=== PATIENT | male | born 1935 | race African-American/Black ===

== ENCOUNTER 2022-08-04 19:43 | Inpatient (IN) | payer MEDICARE ==
[~2022-08-04] VITALS: Ht 170.2 cm; Wt 82.0 kg
[~2022-08-04 19:43] MED LIST: BREZTRI AEROS10.7 GM IH; CARDIZEM 60MG T60 MG PO; CEPHALEXIN500 M1 PO; FLOMAX 0.40.4 MG/CAP PO; IMDUR 30MG30 MG/TAB PO; LASIX 20MG TABL20 MG PO; LIPITOR 40MG TA40 MG PO; LOPRESSOR 225 MG/TAB PO; NATURAL ODORLE400 MG PO; NITROSTAT0.4 MG/TAB SL; ORIGANUM OIL 1 M1 ML PO; PREDNISONE10 MG PO; PROAIR HFA0.09 MG/AC IH; PROSCAR 5MG5 MG PO; RESTORIL 1515 MG/CAP PO; TYLENOL #4 (1 UDTAB PO; XARELTO20 MG PO; ZESTRIL2.5 MG PO
[2022-08-04 20:10] LABS: MEAN CELL VOLUME 94 fl (80.0-100.0); MEAN CORPUSCULAR HEMOGLOBIN 31 pg (27-31); MEAN CORPUSCULAR HGB CONC 33 g/dl (33.0-37.0); MEAN PLATELET VOLUME 11.2 fl (7.4-10.4); PLATELET COUNT 161 K/mm3 (130-400); RED BLOOD COUNT 3.27 M/mm3 (4.20-5.60); REDCELL DISTRIBUTION WIDTH-CV 17.6 % (11.5-14.5)
[2022-08-04 20:11] LABS: HEMATOCRIT 30.7 % (42.0-52.0)
[2022-08-04 20:57] LABS: ANISOCYTOSIS 1+; BAND 4 % (0-10); HYPOCHROMIA 1+; LYMPHOCYTE 27 % (20.0-51.0); METAMYELOCYTE 1 % (0-0); NEUTROPHILS 64 % (42.0-75.2); PLATELET ESTIMATE NORMAL (NORMAL)
[2022-08-04 20:58] LABS: OVALOCYTES 1+
[2022-08-04 21:23] LABS: ALBUMIN 3.2 gm/dL (3.4-4.8); BILIRUBIN,TOTAL 0.9 mg/dL (0.2-1.2); CALCIUM 8.5 mg/dL (8.4-10.2); CREATININE, serum 1.1 mg/dL (0.72-1.25); POTASSIUM 3.6 mmol/L (3.5-4.5); TOTAL PROTEIN 6.7 gm/dL (6.2-8.1)
[2022-08-04 21:30] LABS: TROPONIN-I 0.05 ng/mL (0.00-0.033)
[2022-08-04] MEDS ORDERED: ATARAX 10MG10 MG/TAB PO (22:48)
[2022-08-04] MEDS ORDERED: PROTONIX 40MG T40 MG PO (22:49)
[2022-08-04] MEDS ORDERED: PRINIVIL2.5 MG PO (22:50)
[2022-08-04] MEDS ORDERED: ASPIRIN 81M81 MG/TA2 PO (22:52)
[2022-08-04 23:31] VITALS: BP 121/61; PULSE 93; TEMP 98.9
--- NOTE | 2022-08-04 23:32 | NUR ---
2320 PT ARRIVED TO ROOM 358.
[2022-08-05] VITALS (17 sets, daily range): BP systolic 95–158; BP diastolic 39–78; PULSE 60–92; TEMP 97.4–98.3
--- NOTE | 2022-08-05 00:51 | NUR ---
0048 LAB REPORTED CRITICAL LAB VALUE TO THIS RN, TROP [phone] CRITICAL CALLED TO FUNDRAISING COORDINATOR
[2022-08-05 03:49] LABS: HEMOGLOBIN 10.2 g/dl (13.5-18.0); MEAN CELL VOLUME 94 fl (80.0-100.0); MEAN CORPUSCULAR HEMOGLOBIN 30 pg (27-31); MEAN CORPUSCULAR HGB CONC 32 g/dl (33.0-37.0); MEAN PLATELET VOLUME 11.1 fl (7.4-10.4); PLATELET COUNT 159 K/mm3 (130-400); REDCELL DISTRIBUTION WIDTH-CV 17.4 % (11.5-14.5)
[2022-08-05 04:10] LABS: CALCIUM 8.4 mg/dL (8.4-10.2); CREATININE, serum 0.98 mg/dL (0.72-1.25); MAGNESIUM 1.8 mg/dL (1.6-2.6); POTASSIUM 3.3 mmol/L (3.5-4.5)
[2022-08-05 04:20] LABS: BAND 1 % (0-10); EOSINOPHIL 1 % (0-4); LYMPHOCYTE 25 % (20.0-51.0); NEUTROPHILS 71 % (42.0-75.2)
[2022-08-05 04:21] LABS: ANISOCYTOSIS 1+; HYPOCHROMIA 2+; PLATELET ESTIMATE NORMAL (NORMAL)
--- NOTE | 2022-08-05 06:06 | NUR ---
604 CONSULT TO CARDIOLOGY CALLED TO MD JEROME
--- NOTE | 2022-08-05 09:26 | NUR ---
PATIENT C/O SEVERE CHEST PAIN TO THE LEFT SIDE. NOTIFIED HOSPITALIST. EKG ORDERED. WILL CONTINUE TO MONITOR.
--- NOTE | 2022-08-05 11:02 | NUR ---
Initial visit; Patient thnaked Kids Club Attendant for looking in on him and seeing how things are going. Patient states he is doing better and asks that Kids Club Attendant keep him in her prayers. Kids Club Attendant will follow up and offered God's blessings.
--- NOTE | 2022-08-05 15:30 | NUR ---
Attempt made to contact the patients daughter Nessa for intake and was unsuccessful. Message left.
--- NOTE | 2022-08-05 17:15 | NUR ---
PATIENT IS PLEASANT. HAD A LEXISCAN TODAY. EF IS 55%, VSS. PATIENT IS HAVING LOOSE STOOLS AFTER SCAN, SBA WITH WALKER TO THE RESTROOM. MD STATES PATIENT MAY BE ABLE TO GO HOME TOMORROW. BED ALARM ON.
[2022-08-06] VITALS (15 sets, daily range): BP systolic 89–143; BP diastolic 38–64; PULSE 50–71; TEMP 97.3–98.3
[2022-08-06 06:41] LABS: HEMOGLOBIN 10.8 g/dl (13.5-18.0); MEAN CELL VOLUME 94 fl (80.0-100.0); MEAN CORPUSCULAR HEMOGLOBIN 30 pg (27-31); MEAN CORPUSCULAR HGB CONC 32 g/dl (33.0-37.0); MEAN PLATELET VOLUME 11.7 fl (7.4-10.4); PLATELET COUNT 168 K/mm3 (130-400); RED BLOOD COUNT 3.58 M/mm3 (4.20-5.60); REDCELL DISTRIBUTION WIDTH-CV 17.4 % (11.5-14.5)
[2022-08-06 06:47] LABS: HEMATOCRIT 33.6 % (42.0-52.0)
[2022-08-06 07:03] LABS: CALCIUM 8.3 mg/dL (8.4-10.2); CREATININE, serum 0.91 mg/dL (0.72-1.25); POTASSIUM 3.8 mmol/L (3.5-4.5)
[2022-08-06 07:06] LABS: ANISOCYTOSIS 1+; EOSINOPHIL 4 % (0-4); LYMPHOCYTE 19 % (20.0-51.0); METAMYELOCYTE 3 % (0-0); NEUTROPHILS 65 % (42.0-75.2); OVALOCYTES 1+; SCHISTOCYTES 1+
[2022-08-06 07:07] LABS: PLATELET ESTIMATE NORMAL (NORMAL)
--- NOTE | 2022-08-06 08:52 | NUR ---
Assessment complete. A/O x4. INT TO LAC without s/s complications. Tele reading SR BBB PACS. Reports headache and sharp pain to left chest- stating that the pain has been going on for at least 45 minutes. Unable to rate but pt grimacing and moaning. EKG just completed by Cardiopulmonary. Will notifiy the hospitalist.
--- NOTE | 2022-08-06 09:03 | NUR ---
Tylenol administered po for headache with assessment. Nitrostat 0.4mg adminstered SL for c/o chest pain. VSS- see flowsheet. Ekta Mancilla notified of pt c/o chest pain.
--- NOTE | 2022-08-06 09:09 | NUR ---
Dr. Holguin at bedside examing patient. Pt reports pain is "easy up a little bit." 0.4mg Nitrostat administered SL. EKG ordered. Cariopulmonary notified. VSS- see flowsheet.
--- NOTE | 2022-08-06 09:15 | NUR ---
Pt states "it is a little better." VSS- see flowsheet.
--- NOTE | 2022-08-06 09:17 | NUR ---
Cardiopulmonary at bedside completing EKG.
--- NOTE | 2022-08-06 09:20 | NUR ---
Pt continue to report "slight" improvement. EKG completed. VSS- see flowsheet.
--- NOTE | 2022-08-06 10:45 | NUR ---
Follow-up visit; Patient says he wants First Officer And Flight Instructor to visit whenever she can and says he hopes he is doing better and along with First Officer And Flight Instructor he prays sll the time to feel better. First Officer And Flight Instructor wished Rigoberto a good day and continued healing.
--- NOTE | 2022-08-06 10:51 | NUR ---
Pt reports chest pain improved, rating 1-2/10 with sneezing only. Has worked with therapy this morning and is now sitting up in chair with chair alarm on.
--- NOTE | 2022-08-06 11:34 | NUR ---
SW contacted the patient's daughter, Nessa (ph#[phone]), to discuss discharge plan. The patient lives [place] [address] with Nessa, Nessa's , and the patient's other daughter (Aviva, ph#[phone]). Nessa states that the patient needs assistance with ADLs and has a cane, walker, and showerchair. Nessa states that her and her sister assist the patient with his ADLs. The patient's PCP is Dr. Leatha Nix at [facility] in [place] and he receives his medications from [facility] in . The patient's DPOA-HC is in EMR and it designates Nessa. Nessa states that the plan is for the patient to return back home with her and family upon discharge. No additional needs at this time. *Discharge plan: home with family*
--- NOTE | 2022-08-06 13:07 | NUR ---
Pt resting in bed. Reports "unbearable" headache. Reports chest pain 07/28. Reports stomach "irritated." Very difficult to understand patient needs as he goes from crying out to Sonu to complaining of stomach pain to headache to chest pain. VSS- see flowsheet.
--- NOTE | 2022-08-06 13:30 | NUR ---
Upon entering room, patient visably upset. Provided reassurance and explained that the provider has been notified and that he would be getting a CT scan of his head. Pt verbalizes understanding.
--- NOTE | 2022-08-06 13:36 | NUR ---
Pt calls this nurse to room to report LLE/posterior knee pain. VSS-see flowsheet. FABIAN Sargent notified by MARY ALICE Varner and requested her to come to bedside to evaluate pt.
--- NOTE | 2022-08-06 13:41 | NUR ---
Ekta at bedside. Contacted CT and they report that they will be up within the hour to get the patient.
--- NOTE | 2022-08-06 14:45 | NUR ---
Pt off unit for CT scan. Pt has been much calmer since Ekta came to bedside and visited with him.
--- NOTE | 2022-08-06 15:01 | NUR ---
Pt reports headache and chest pain/discomfort have improved- rating both 1/10 on pain scale. Reports stomach pain also improved- rating pain 2/10. Speech Therapy at bedside for consultation.
--- NOTE | 2022-08-06 15:53 | NUR ---
Dr. Holguin notified that patient's CT scan is resulted.
--- NOTE | 2022-08-06 17:28 | NUR ---
This nurse notified Dr. Baugh of consulation.
--- NOTE | 2022-08-06 18:36 | NUR ---
Pt sat up in chair for supper- approximately 1 hour. Rates headache and chest discomfort 1/10. Rates pain to abdomen 2/10. Reports overall feeling better as the evening has progressed. Now resting in bed without complaints.
[2022-08-07] VITALS (9 sets, daily range): BP systolic 101–116; BP diastolic 45–92; PULSE 60–71; TEMP 97.4–98.4
[2022-08-07 06:14] LABS: HEMOGLOBIN 10.6 g/dl (13.5-18.0); MEAN CELL VOLUME 95 fl (80.0-100.0); MEAN CORPUSCULAR HEMOGLOBIN 30 pg (27-31); MEAN CORPUSCULAR HGB CONC 32 g/dl (33.0-37.0); MEAN PLATELET VOLUME 11.6 fl (7.4-10.4); PLATELET COUNT 160 K/mm3 (130-400); REDCELL DISTRIBUTION WIDTH-CV 17.2 % (11.5-14.5)
[2022-08-07 06:15] LABS: HEMATOCRIT 33.2 % (42.0-52.0)
[2022-08-07 06:30] LABS: CALCIUM 8.1 mg/dL (8.4-10.2); CREATININE, serum 0.9 mg/dL (0.72-1.25); POTASSIUM 3.7 mmol/L (3.5-4.5)
[2022-08-07 07:20] LABS: EOSINOPHIL 3 % (0-4); LYMPHOCYTE 19 % (20.0-51.0); METAMYELOCYTE 1 % (0-0); NEUTROPHILS 72 % (42.0-75.2)
[2022-08-07 07:21] LABS: PLATELET ESTIMATE NORMAL (NORMAL)
[2022-08-07 07:22] LABS: ANISOCYTOSIS 1+
--- NOTE | 2022-08-07 09:27 | NUR ---
Follow-up visit; Patient thanked Casing Runner for coming in and wishing him well and leaving a card with a prayer for him. Casing Runner will continue to keep Rigoberto in her prayers.
[2022-08-07] MEDS ORDERED: MULTAQ400 MG PO (10:40)
--- NOTE | 2022-08-07 14:35 | NUR ---
The patient is to discharge back home with his family today, 08/07. MAILE contacted the patient's daughter, Nessa, to follow up. Nessa had no concerns for SW. She confirms that the patient has oxygen at night. She states that she will steel pickler the patient around 1730 today. MAILE notified the RN of this. MAILE read the IM form outloud to Nessa over the phone. Nessa verbalized understanding and agreement to discharge today. She gave SW approval to sign the form on her behalf. No additional needs at this time.
--- NOTE | 2022-08-07 17:00 | NUR ---
PATIENT GIVEN DISCHARGE INSTRUCTIONS AND EDUCATION. ALL NEW AND STOPPED MEDICATIONS REVIEWED WITH PATIENT. PATIENT MADE AWARE OF FOLLOW UP APTS. ALL QUESTIONS ANSWERED. PATIENTS CALL LIGHT WITH IN REACH. WAITING FOR FAMILY TO PICK HIM UP.
--- NOTE | 2022-08-07 18:38 | NUR ---
PATIENT DRESSED AND TAKEN TO ER ENTRANCE VIA WHEELCHAIR. STEPAN LEFT IN STABLE CONDITION IN THE CARE OF HIS DAUGHTER. COPY OF CERTIFICATE IN PATIENT CHART.
[2022-08-08] MEDS ORDERED: TYLENOL 325MG325 MG PO (12:28)
== END 2022-08-07 18:38 | disposition home or self-care (01) | DRG 377 ==
LOC: COL.ER → EDBD 19:43 → COL.ER 19:43 → MEDICAL 22:35 → COL.ER 22:35 → MEDICAL 22:35 → EDBD 08-07 18:38 → MEDICAL 08-07 18:38
PROVIDERS: Personal Emergency Response Attendant; Physician Assistant; Student in an Organized Health Care Education/Training Program; ADMIT Student in an Organized Health Care Education/Training Program
DX: K92.2 Gastrointestinal hemorrhage, unspecified (principal); I21.A1 Myocardial infarction type 2; D62 Acute posthemorrhagic anemia; I48.20 Chronic atrial fibrillation, unspecified; I50.32 Chronic diastolic (congestive) heart failure; K62.5 Hemorrhage of anus and rectum; I11.0 Hypertensive heart disease with heart failure; I20.9 Angina pectoris, unspecified; I08.1 Rheumatic disorders of both mitral and tricuspid valves; I49.1 Atrial premature depolarization; I37.1 Nonrheumatic pulmonary valve insufficiency; I45.10 Unspecified right bundle-branch block; D64.9 Anemia, unspecified; D69.6 Thrombocytopenia, unspecified; J44.9 Chronic obstructive pulmonary disease, unspecified; R13.10 Dysphagia, unspecified; N40.0 Benign prostatic hyperplasia without lower urinary tract symptoms; E78.5 Hyperlipidemia, unspecified; G47.00 Insomnia, unspecified; R53.81 Other malaise; Z79.82 Long term (current) use of aspirin; Z79.01 Long term (current) use of anticoagulants; Z95.818 Presence of other cardiac implants and grafts; Z86.73 Personal history of transient ischemic attack (TIA), and cerebral infarction without residual deficits
CPT/HCPCS: OP; A9500; A9575; G0378

== ENCOUNTER 2022-08-08 09:49 | Inpatient (IN) | payer MEDICARE ==
[~2022-08-08] VITALS: Ht 170.2 cm; Wt 86.0 kg
[~2022-08-08 09:49] MED LIST changes: +ASPIRIN 81M81 MG/TA2 PO; +ATARAX 10MG10 MG/TAB PO; +MULTAQ400 MG PO; +PRINIVIL2.5 MG PO; +PROTONIX 40MG T40 MG PO
[2022-08-08 10:09] LABS: HEMOGLOBIN 11.8 g/dl (13.5-18.0); MEAN CELL VOLUME 94 fl (80.0-100.0); MEAN CORPUSCULAR HEMOGLOBIN 30 pg (27-31); MEAN CORPUSCULAR HGB CONC 32 g/dl (33.0-37.0); MEAN PLATELET VOLUME 11.2 fl (7.4-10.4); PLATELET COUNT 156 K/mm3 (130-400); REDCELL DISTRIBUTION WIDTH-CV 17.2 % (11.5-14.5)
[2022-08-08 10:11] LABS: HEMATOCRIT 36.6 % (42.0-52.0)
[2022-08-08 10:26] LABS: ALBUMIN 3.3 gm/dL (3.4-4.8); BASOPHIL 1 % (0-2); BILIRUBIN,TOTAL 0.8 mg/dL (0.2-1.2); C-REACTIVE PROTEIN 0.25 mg/dL (0.00-0.50); CALCIUM 8.6 mg/dL (8.4-10.2); CREATININE, serum 1.6 mg/dL (0.72-1.25); EOSINOPHIL 3 % (0-4); LYMPHOCYTE 1 % (20.0-51.0); METAMYELOCYTE 2 % (0-0); NEUTROPHILS 92 % (42.0-75.2); POTASSIUM 3.7 mmol/L (3.5-4.5)
[2022-08-08 10:27] LABS: ANISOCYTOSIS 1+; PLATELET ESTIMATE NORMAL (NORMAL)
[2022-08-08 11:55] VITALS: BP 105/73; PULSE 123; TEMP 98.8
[2022-08-08] MEDS ORDERED: TYLENOL 325MG325 MG PO (12:28)
--- NOTE | 2022-08-08 14:56 | NUR ---
PATIENT ARRIVED ON THE UNIT FROM ED THIS MORNING. REPORT SAYS THAT FAMILY CALLED EMS AND PUT THE PATIENT OUTSIDE WITH A BLANKET AND HIS WALKER. PATIENT DOES NOT COMPLAIN OF PAIN. PATIENT HR IS TACHY AND REMAINS IN AFIB W/ RVR. HE SEEMS CONFUSED AND IS INCONTINENT AT THIS TIME. PATIENT STATED THAT HIS CAREGIVERS WERE NOT VERBALLY NICE TO HIM, AND TOOK ADVANTAGE OF A CHECK THAT HE WANTED CASHED. BROOMMAKING SUPERVISOR IS AWARE. HE IS HAVING LOOSE STOOLS. SENT SAMPLE DOWN FOR GASTRO PANEL AND C.DIFF. TAKES PILLS WHOLE WITH THIN LIQUIDS. WILL CONTINUE TO MONITOR FOR ANY CHANGES.
[2022-08-08 16:00] VITALS: BP 136/56; PULSE 70; TEMP 97.9
[2022-08-08 16:02] LABS: CLOSTRIDIUM DIFF A/B NEG; CLOSTRIDIUM DIFF A/B INTERP NonToxigenic C.diff
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
[2022-08-08 16:40] VITALS: PULSE 70; TEMP 97.9
--- NOTE | 2022-08-08 16:42 | NUR ---
Hospital Aide completed APS/DCF report # [id number].
[2022-08-08 19:05] VITALS: BP 106/57; PULSE 85; TEMP 98.9
[2022-08-08 19:10] VITALS: PULSE 85; TEMP 98.9
[2022-08-09] VITALS (10 sets, daily range): BP systolic 108–136; BP diastolic 49–66; PULSE 57–77; TEMP 97.4–98.4
--- NOTE | 2022-08-09 05:15 | NUR ---
ASSESSMENT COMPLETE FOR MACHINE TOOL DRESSER. PT CONTINUED WITH DIARRHEA AND ABD PAIN. HOSPITALIST CALLED. RECTAL CATHETER AND MORPHINE ORDERED AND PLACED/GIVEN. PT SATISFIED WITH CATHETER PLACEMENT AND FELT MORPHINE WAS EFFECTIVE. CALL LIGHT WITHIN REACH.
--- NOTE | 2022-08-09 08:28 | NUR ---
RECTAL TUBE PLACED ON ASSOCIATE OF SCIENCE IN NURSING. PATIENT IS HAVING OUTPUT. NO COMPLAINTS OF PAIN.
[2022-08-09 09:27] LABS: HEMATOCRIT 37.7 % (42.0-52.0); HEMOGLOBIN 11.9 g/dl (13.5-18.0); MEAN CELL VOLUME 96 fl (80.0-100.0); MEAN CORPUSCULAR HEMOGLOBIN 30 pg (27-31); MEAN CORPUSCULAR HGB CONC 32 g/dl (33.0-37.0); MEAN PLATELET VOLUME 11.2 fl (7.4-10.4); PLATELET COUNT 149 K/mm3 (130-400); RED BLOOD COUNT 3.91 M/mm3 (4.20-5.60); REDCELL DISTRIBUTION WIDTH-CV 17.6 % (11.5-14.5)
[2022-08-09 09:42] LABS: CALCIUM 8.2 mg/dL (8.4-10.2); CREATININE, serum 1.32 mg/dL (0.72-1.25); MAGNESIUM 1.6 mg/dL (1.6-2.6); PHOSPHOROUS 3.2 mg/dL (2.3-4.7); POTASSIUM 3.8 mmol/L (3.5-4.5)
[2022-08-09 09:57] LABS: ANISOCYTOSIS 1+; BAND 3 % (0-10); LYMPHOCYTE 17 % (20.0-51.0); NEUTROPHILS 75 % (42.0-75.2); PLATELET ESTIMATE NORMAL (NORMAL)
[2022-08-09 09:59] LABS: HYPOCHROMIA 2+
--- NOTE | 2022-08-09 12:29 | NUR ---
PATIENT HAS BEEN RESTING THIS MORNING AND AFTERNOON. DOES NOT COMPLAIN OF ANY PAIN. BOTTOM IS MILDLY REDDENED, BUT BLANCHING, DUE TO WIPING FROM CONTINUOUS BOWEL MOVEMENTS ON THE TOILET. PATIENT NOW HAS RECTAL CATHETER PLACED, SO THAT WILL HELP WITH PREVENTING MORE REDNESS. SO FAR 1000ML OF STOOL FROM THE BAG. VSS. PATIENT HAS NO APPETITE, BUT RECEIVING IV FLUIDS AT 75ML. WILL CONTINUE TO MONITOR.
[2022-08-10 00:34] VITALS: BP 107/56; PULSE 90; TEMP 98.3
[2022-08-10 04:18] VITALS: BP 114/79; PULSE 51; TEMP 97.8
--- NOTE | 2022-08-10 05:00 | NUR ---
ASSESSMENT COMPLETE FOR QUARRY MANAGER. PT COMPLAINED OF HEADACHE, ABD ACHE/PRESSURE/FULLNESS, "I'M STOPPED UP. I CAN'T PEE OR POOP!", AND LEFT LEG PAIN. HOSPITALIST CALLED. MORPHINE ORDERED AND GIVEN. ZOFRAN GIVEN. RECTAL CATHETER CHECKED. CATHETER DRAINING. BLADDER SCANNED. 107ML FOUND WITH SCAN. CT HEAD ORDERED AND ABD CT ORDERED. BY THE END OF THE SHIFT, PT STATED HE FELT BETTER PHYSICALLY, BUT WAS WORRIED ABOUT HIS DAUGHTERS THINKING HE CALLED THE COORDINATOR CARDIOPULMONARY SERVICES ON THEM AND NOT HAVING A PLACE TO STAY ONCE OUT OF THE HOSPITAL. PT REASSURED NOT TO WORRY, WE WOULD MAKE SURE HE WAS TAKEN CARE OF. CALL LIGHT WITHIN REACH.
[2022-08-10 06:33] LABS: HEMOGLOBIN 10.8 g/dl (13.5-18.0); MEAN CELL VOLUME 95 fl (80.0-100.0); MEAN CORPUSCULAR HEMOGLOBIN 31 pg (27-31); MEAN CORPUSCULAR HGB CONC 33 g/dl (33.0-37.0); MEAN PLATELET VOLUME 12.1 fl (7.4-10.4); PLATELET COUNT 134 K/mm3 (130-400); REDCELL DISTRIBUTION WIDTH-CV 17.1 % (11.5-14.5)
[2022-08-10 06:37] LABS: HEMATOCRIT 33.1 % (42.0-52.0)
[2022-08-10 06:52] LABS: CALCIUM 7.7 mg/dL (8.4-10.2); CREATININE, serum 1.11 mg/dL (0.72-1.25); POTASSIUM 3.7 mmol/L (3.5-4.5)
[2022-08-10 07:50] VITALS: BP 119/74; PULSE 76; TEMP 98
[2022-08-10 07:55] LABS: ANISOCYTOSIS 1+; BAND 3 % (0-10); EOSINOPHIL 1 % (0-4); LYMPHOCYTE 22 % (20.0-51.0); MYELOCYTE 1 % (0-0); NEUTROPHILS 65 % (42.0-75.2); PLATELET ESTIMATE DECREASED (NORMAL)
[2022-08-10 07:56] LABS: BURR CELLS 2+; HYPOCHROMIA 1+; OVALOCYTES 1+
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
[2022-08-10 11:03] VITALS: BP 123/72; PULSE 72; TEMP 97.9
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
--- NOTE | 2022-08-10 13:17 | NUR ---
Phone call made to the office of for capacity screen. No answer, message left. SW faxed request as well.
[2022-08-10 16:00] VITALS: BP 110/68; PULSE 75; TEMP 98
--- NOTE | 2022-08-10 16:11 | NUR ---
This MAILE and MAILE Saldivar meet with patient to discuss creating a new DPOA-HC since his current one lists his daughter and granddaughter on it. Patient is able to verbalize what a DPOA-HC is, where he is at currently, what city, month, date, year and president. Patient verbalizes that he would like to appoint his grandson in [place] Rigoberto Vo "Tanya Wheeler" ([phone]) and his agent for healthcare decisions. This MAILE and Janna GR witness form. Original with copies are provided to the patient and copy placed in his chart.
--- NOTE | 2022-08-10 16:27 | NUR ---
(LATE ENTRY) 1436- Johanny with APS arrives to unit to meet with patient.
[2022-08-10 19:58] VITALS: BP 137/64; PULSE 69; TEMP 98.7
--- NOTE | 2022-08-10 22:51 | NUR ---
2034 RECTAL TUBE REMOVED PER PATIENTES REQUEST. PER REPORT THIS RN RECEIVED FROM DAY SHIFT NURSE IT WAS OK TO REMOVE IF HE WAS NOT HAVING LOTS OF OUTPUT, PT WAS COMPLAINING OF PAIN AND DISCOMFORT.
[2022-08-11 00:10] VITALS: BP 96/50; PULSE 52; TEMP 98
[2022-08-11 04:45] LABS: COLLECTION METHOD CLEAN CATCH
[2022-08-11 04:59] VITALS: BP 112/45; PULSE 55; TEMP 98.9
[2022-08-11 05:03] LABS: MUCOUS Present (NOT PRESENT); SQUAMOUS EPITHELIAL None Seen /hpf (0-10); URINE APPEARANCE Clear (CLEAR/HAZY); URINE BACTERIA None Seen /hpf (NONE SEEN); URINE BLOOD Negative (NEGATIVE); URINE COLOR Yellow (YELLOW); URINE GLUCOSE Negative (NEGATIVE); URINE KETONE Negative (NEGATIVE); URINE NITRATE Negative (NEGATIVE); URINE PROTEIN(semi-quant) Negative (NEGATIVE); URINE RBC 0-2 /hpf (0-2); URINE UROBILINOGEN 0.2 E.U/dL (0.2-1.0)
[2022-08-11 06:42] LABS: HEMOGLOBIN 10.8 g/dl (13.5-18.0); MEAN CELL VOLUME 93 fl (80.0-100.0); MEAN CORPUSCULAR HEMOGLOBIN 30 pg (27-31); MEAN CORPUSCULAR HGB CONC 33 g/dl (33.0-37.0); MEAN PLATELET VOLUME 11.2 fl (7.4-10.4); PLATELET COUNT 139 K/mm3 (130-400); RED BLOOD COUNT 3.59 M/mm3 (4.20-5.60); REDCELL DISTRIBUTION WIDTH-CV 16.8 % (11.5-14.5)
[2022-08-11 06:45] LABS: HEMATOCRIT 33.2 % (42.0-52.0)
[2022-08-11 07:01] LABS: CALCIUM 7.9 mg/dL (8.4-10.2); CREATININE, serum 0.96 mg/dL (0.72-1.25)
[2022-08-11 07:36] LABS: BAND 1 % (0-10); EOSINOPHIL 4 % (0-4); LYMPHOCYTE 27 % (20.0-51.0); NEUTROPHILS 59 % (42.0-75.2)
[2022-08-11 07:38] LABS: HYPOCHROMIA 1+
[2022-08-11 07:46] LABS: BURR CELLS 1+; OVALOCYTES 1+
[2022-08-11 08:00] VITALS: BP 120/46; PULSE 54; TEMP 97.9
[2022-08-11 12:00] VITALS: BP 114/65; PULSE 57; TEMP 97.9
--- NOTE | 2022-08-11 13:56 | NUR ---
(Late Entry) On 08/10/21 Plug Drill Operator and MAILE Cadena met with patient to discuss Advance Directives. Patient referenced the white board and stated he would like to appointment his grandson, Rigoberto "Tanya Paez". Patient correctly answered orientation questions and was able to state the month, year, current president, and his current location. SW asked patient what DPOA-HC gives Tanya Paez the authority to do if signed and patient stated "to make my decisions".
--- NOTE | 2022-08-11 15:43 | NUR ---
dry transfer worker and Tammi, social sciences professor, met with patient and his two daughters. Patient verbalized that he appreciates his daughters and they have been good to him. Patient states that he wants to return home with daughters. Workers provided support to patient and daughters and also the Medicare.gov share information on nursing facilities as daughter, Nessa, states it is getting hard to provide care for patient due to confusional states. Daughters verbalize that the previous reports from EMS were false.
[2022-08-11 16:00] VITALS: BP 112/56; PULSE 55; TEMP 98
--- NOTE | 2022-08-11 16:22 | NUR ---
This SW and SW material handling supervisor meet with patient, patients daughter and granddaughter at bedside and due to todays interaction with the family, Dr. Hansen's recommendation of patient not having decision making capacity, the DPOA-HC that the patient made on 08/10 is null and void. Rigoberto Vo contacted and notified of the above. Rigoberto verbalizes his understanding and agreement. DPOA-HC listing Rigoberto brown.
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
[2022-08-11 20:30] VITALS: BP 111/39; PULSE 63; TEMP 98.9
[2022-08-12 00:02] VITALS: BP 143/86; PULSE 64; TEMP 98.7
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
[2022-08-12 04:24] VITALS: BP 124/54; PULSE 95; TEMP 97.6
[2022-08-12 07:41] VITALS: BP 113/51; PULSE 55; TEMP 97.6
--- NOTE | 2022-08-12 08:57 | NUR ---
Assessment complete. A&Ox3. Denies nausea/shortness of breath. VS stable. Rating pain 3/10 on pain scale-intermittent ache-denies need for intervention. Patient states he does not want to go home with his daughters that he wants to go to a home. Requesting social media director to visit. This nurse let SS know that patient would like to speak to them. Left AC INT flushes without difficulty. Plan of care discussed for this shift to include meds/pain control/calling for questions/concerns. Verbalizes understanding. Call light in reach. Will monitor.
--- NOTE | 2022-08-12 11:25 | NUR ---
Patient resting eyes closed. No s/s of pain or discomfort noted. Will monitor.
[2022-08-12 11:49] VITALS: BP 106/40; PULSE 54; TEMP 97.9
[2022-08-12] MEDS ORDERED: LOPRESSOR 225 MG/TAB PO (12:46)
[2022-08-12] MEDS ORDERED: SENNA-S 50 MG-81 TAB PO (12:50)
[2022-08-12 15:06] VITALS: BP 113/44; PULSE 62; TEMP 98.1
--- NOTE | 2022-08-12 15:49 | NUR ---
Hospitalist notified Boring Machine Operator that patient is ready for discharge today. MAILE contacted patient's daughter, Nessa to review discharge plan. Nessa is still wanting to take patient home and is open to Home Health services. MAILE was unfamiliar with what agencies go to [place], so Nessa was open to whatever agency could accept him. MAILE reviewed IM form over the phone with Nessa who verbalized understanding and provided verbal consent as signature. MAILE placed form in chart and provided copy in patient's discharge folder. MAILE notified LORENE Orlando of discharge. MAILE contacted Heena at [facility] who advised they can service [facility]. MAILE faxed referral and discharge orders. Heena advised they can accept patient. Discharge Plan: Home with HH
--- NOTE | 2022-08-12 18:00 | NUR ---
INT to left AC dcd-cath intact. Tele mmonitor removed.
--- NOTE | 2022-08-12 19:02 | NUR ---
Spoke with Nessa, daughter of patient to see if they were still planning on picking patient up tonight. States they are on their way to get the patient now.
--- NOTE | 2022-08-12 19:45 | NUR ---
Called Nessa at 192. Staff stated that she had broughout in patient's clothing and was waiting outside of ER to pickling tank operator patient. Called and notified Nessa that discharge paperwork needed to be filled out and signed and requested that she come back up to receive paperwork. Nessa requested that paperwork be brought to her. This nurse broughout out paperwork and went over discharge instructions, medications, and follow up appointments. Voiced undestanding of all paperwork and denied any questions. [facility] assisted patient out to car and discharged at 1939.
== END 2022-08-12 19:40 | disposition home health service (06) | DRG 372 ==
LOC: COL.ER 09:49 → MEDICAL 10:54
PROVIDERS: Family Medicine; Physician Assistant; ADMIT Student in an Organized Health Care Education/Training Program
DX: A04.72 Enterocolitis due to Clostridium difficile, not specified as recurrent (principal); E87.20 Acidosis, unspecified; N17.9 Acute kidney failure, unspecified; A08.11 Acute gastroenteropathy due to Norwalk agent; I48.91 Unspecified atrial fibrillation; J44.9 Chronic obstructive pulmonary disease, unspecified; N40.0 Benign prostatic hyperplasia without lower urinary tract symptoms; E78.5 Hyperlipidemia, unspecified; I10 Essential (primary) hypertension; D64.9 Anemia, unspecified; I37.1 Nonrheumatic pulmonary valve insufficiency; F32.A Depression, unspecified; I34.0 Nonrheumatic mitral (valve) insufficiency; I25.119 Atherosclerotic heart disease of native coronary artery with unspecified angina pectoris; Z20.822 Contact with and (suspected) exposure to COVID-19; Z79.82 Long term (current) use of aspirin; I25.2 Old myocardial infarction; I69.391 Dysphagia following cerebral infarction
CPT/HCPCS: OP; G0378; J2270; J2405; J7030; J7120

== ENCOUNTER 2022-08-30 16:26 | Emergency (ER) | payer MEDICARE ==
[~2022-08-30] VITALS: Ht 170.2 cm; Wt 83.2 kg
[~2022-08-30 16:26] MED LIST changes: +SENNA-S 50 MG-81 TAB PO; +TYLENOL 325MG325 MG PO
[2022-08-30 16:27] VITALS: TEMP 98.7
[2022-08-30 16:50] LABS: BASO % 0.2 % (0.0-2.0); EOS # 0.2 K/mm3 (0.0-0.7); EOS % 4.2 % (0.0-4.0); GRAN # 2.5 K/mm3 (1.4-6.5); GRAN % 62.1 % (42.2-75.2); HEMATOCRIT 30.5 % (42.0-52.0); LYMPH % 25.1 % (20.0-51.0); MEAN CELL VOLUME 93 fl (80.0-100.0); MEAN CORPUSCULAR HEMOGLOBIN 31 pg (27-31); MEAN CORPUSCULAR HGB CONC 33 g/dl (33.0-37.0); MEAN PLATELET VOLUME 10.5 fl (7.4-10.4); MONO # 0.3 K/mm3 (0.1-0.6); MONO % 7.4 % (1.7-9.3); PLATELET COUNT 138 K/mm3 (130-400); RED BLOOD COUNT 3.28 M/mm3 (4.20-5.60); REDCELL DISTRIBUTION WIDTH-CV 17.2 % (11.5-14.5)
[2022-08-30 16:58] LABS: INR 1.2 (0.8-3.0); PROTHROMBIN TIME 13.8 SECONDS (9.7-12.8)
[2022-08-30 17:00] LABS: PARTIAL THROMBOPLASTIN TIME 34.3 SECONDS (26.0-37.0)
[2022-08-30 17:02] LABS: D-DIMER < 200.00 ng/mLDDu (200-230)
[2022-08-30 17:06] LABS: C-REACTIVE PROTEIN 0.06 mg/dL (0.00-0.50); CALCIUM 8.1 mg/dL (8.4-10.2); CREATININE, serum 1.22 mg/dL (0.72-1.25); POTASSIUM 3.6 mmol/L (3.5-4.5)
[2022-08-30 17:09] LABS: ERYTHROCYTE SEDIMENTATION RATE 16 mm/hr (0-30)
[2022-08-30 17:17] LABS: TROPONIN-I 0.042 ng/mL (0.00-0.033)
[2022-08-30 19:15] VITALS: BP 115/61; PULSE 56
== END 2022-08-30 19:28 | disposition home or self-care (01) ==
LOC: COL.ER 16:26 → EDBD 16:27 → COL.ER 19:28
PROVIDERS: Family Medicine
DX: R07.89 Other chest pain (principal); G44.209 Tension-type headache, unspecified, not intractable; Z87.891 Personal history of nicotine dependence; Z20.822 Contact with and (suspected) exposure to COVID-19
CPT/HCPCS: J7030